=== PATIENT | male | born 1985 | race Caucasian/White ===

== ENCOUNTER 2016-10-09 17:14 | Observation (INO) | payer BC ==
[~2016-10-09] VITALS: Ht 167.6 cm; Wt 87.1 kg
[2016-10-09 18:05] LABS: Basophils # (auto) 0 uL; Basophils % (auto) 0.3 % (0.0-2.0); Eosinophils # (auto) 0 uL; Eosinophils % (auto) 0.2 % (0.0-7.0); Hematocrit 51.7 % (41.0-53.0); Hemoglobin 17.2 g/dL (13.5-17.5); Lymphocytes # (auto) 2.5 uL; Lymphocytes % (auto) 24.9 % (10.0-50.0); Mean Corpuscular Hemoglobin 30.6 pg (28.0-32.0); Mean Corpuscular Hgb Conc. 33.3 g/dL (32.0-36.0); Mean Platelet Volume 8.6 fL (7.4-10.4); Monocytes # (auto) 0.4 uL; Monocytes % (auto) 3.8 % (0.0-12.0); Neutrophils % (auto) 70.8 % (37.0-80.0); Platelet Count (auto) 246 10^3/uL (140-450); Red Cell Distribution Width 13.6 % (11.6-16.0); White Blood Cell 9.9 10^3/uL (4.4-10.8)
[2016-10-09 18:16] LABS: Urine RBC None Seen /hpf (0 - 3)
[2016-10-09 18:25] LABS: BUN/Creatinine Ratio 12.4; Calcium 8.4 mg/dL (8.5-10.1); Potassium 3.2 mmol/L (3.5-5.1)
[2016-10-09 18:27] LABS: Bilirubin, Total 0.4 mg/dL (0.2-1.0); Total Protein 8.7 g/dL (6.4-8.2)
[2016-10-09 18:28] LABS: Acetaminophen < 2.0 ug/mL (10-30); Salicylate 1.7 mg/dL (2.8-20.0)
[2016-10-09 18:34] LABS: Urine Bilirubin Negative (Negative); Urine Blood Negative /uL (Negative); Urine Color Yellow (Yellow); Urine Glucose Normal (Normal); Urine Hyaline Cast FEW /lpf (0 - 2); Urine Nitrite Negative (Negative); Urine Squamous Epithelial Cell FEW /hpf (<5); Urine Urobilinogen Normal (Negative)
[2016-10-09 18:40] LABS: Urine Ketone 1+ (Negative)
[2016-10-09 18:46] LABS: Magnesium 2.4 mg/dL (1.6-2.6)
[2016-10-09] MEDS ORDERED: LORazepam 0.5 MG TAB PO PRN (21:30)
[2016-10-09] MEDS ORDERED: SODIUM CHLORIDE 0.9% 1,000 ML IV ONE (21:45)
[2016-10-09] MEDS ORDERED: POTASSIUM CHL 20 Meq TABLET PO ONE (21:45)
[2016-10-09] MEDS ORDERED: cloNIDine HCL 0.1 MG TAB PO ONE (22:30)
[2016-10-10 04:55] LABS: BUN/Creatinine Ratio 15.3; Calcium 7.9 mg/dL (8.5-10.1); Potassium 3.5 mmol/L (3.5-5.1)
[2016-10-10 08:41] VITALS: BP 141/87
[2016-10-10] MEDS ORDERED: THIAMINE HCL 100 MG TAB PO SCH (10:00)
[2016-10-10] MEDS ORDERED: MULTIPLE VITAMIN TAB PO SCH (10:00)
[2016-10-10] MEDS ORDERED: FOLIC ACID 1 MG TAB PO SCH (10:00)
[2016-10-10] MEDS ORDERED: THIAMINE INJ 100 MG, MULTIPLE VITAMIN 10 ML, FOLIC ACID 1 MG, MAGNESIUM SULF SDV 50% 8 ... IV SCH ×5 (12:00)
== END 2016-10-10 08:22 | disposition home or self-care (01) | DRG 881 ==
LOC: ER 17:25 → OVERFLOW 10-10 01:15 → ER 10-10 08:22
PROVIDERS: ADMIT Family Medicine; ATTEND Family Medicine
DX: F32.9 Major depressive disorder, single episode, unspecified (principal); R45.851 Suicidal ideations; F41.9 Anxiety disorder, unspecified; F10.10 Alcohol abuse, uncomplicated; E87.6 Hypokalemia
CPT/HCPCS: 36415; 71010; 80048; 80053; 80307; 80320; 80329; 81001; 82962; 83735; 85025; 96360; 99285; G0378